=== PATIENT | female | born 1990 | race Caucasian/White ===

== ENCOUNTER 2016-07-29 17:04 | Emergency (ER) | payer OTHER ==
[2016-07-29 17:09] VITALS: BP 151/94
[2016-07-29] MEDS ORDERED: NS 0.9% 1000 ML* 1,000 ML IV ONE (18:07)
[2016-07-29 19:11] LABS: Hematocrit 45 % (35-47); Hemoglobin 14.7 g/dl (12.0-16.0); Mean Corpuscular HGB Conc 33 g/dl (31-36); Mean Corpuscular Hemoglobin 26 pg (27-31); Mean Corpuscular Volume 81 fL (80-97); Mean Platelet Volume 8 um3 (7.4-10.4); Red Blood Count 5.55 10^6/ul (4.0-5.4); Red Cell Distribution Width 14 % (10.5-15); White Blood Count 8.6 10^3/ul (3.5-10.8)
[2016-07-29 19:39] LABS: Albumin 4.2 g/dL (3.2-5.2); BUN/Creatinine Ratio 18.8 (8-20); C Reactive Protein 41.66 mg/L (< 5.00); Calcium 9.3 mg/dL (8.6-10.3); EGFR African American 145.4 (>60); EGFR Non-African American 113.1 (>60); Globulin 3.1 g/dL (2-4); Total Bilirubin 1.7 mg/dL (0.2-1.0); Total Protein 7.3 g/dL (6.4-8.9)
[2016-07-29] MEDS ORDERED: Iohexol 300* (CONTRAST) 10 ML SDV IV ONE (19:41)
--- NOTE | 2016-07-29 20:09 | RAD ---
CLINICAL HISTORY: Abdominal pain COMPARISON: March 09, 2015 TECHNIQUE: Multiple contiguous axial CT scans were obtained of the abdomen and pelvis after the administration of intravenous contrast. Coronal and sagittal multiplanar reformations are submitted for review. Oral contrast was administered. Delayed images were obtained through the abdomen FINDINGS: LUNG BASES: The lung bases are clear. LIVER: The liver is diffusely low in attenuation compared to the spleen. There are no focal hepatic parenchymal masses. The liver is enlarged measuring 20 cm in long axis. BILE DUCTS: There is no intrahepatic or extrahepatic biliary dilatation. GALLBLADDER: The gallbladder is normal, without pericholecystic inflammatory change. PANCREAS: The pancreas is normal, without mass or ductal dilatation. SPLEEN: Normal in size and appearance. UPPER GI TRACT: Evaluation of the gastrointestinal tract is limited by incomplete gastric distention. The upper GI tract is unremarkable. SMALL BOWEL AND MESENTERY: The small bowel is normal in contour, course, and caliber. There is no obstruction or dilatation. COLON: The colon is normal in contour, course, caliber. There is no pericolonic inflammatory change. There is a tubular, vermiform, hollow viscus that is blind ending, and originates from the cecum, consistent with a normal appendix. There is no periappendiceal inflammatory change. This is best seen on coronal image 56 ADRENALS: Normal bilaterally. KIDNEYS: The kidneys are normal in shape, size, contour, and axis. There is no hydronephrosis or nephrolithiasis. BLADDER: The bladder is smooth in contour. PELVIC ORGANS: Again noted is a low lying IUD, stable from the previous examination. AORTA: The aorta is normal. IVC: Unremarkable LYMPH NODES: There is no lymphadenopathy by size criteria. ABDOMINAL WALL: There is no evidence for abdominal wall hernia. BONES AND SOFT TISSUES: There are mild diffuse degenerative changes. OTHER: None IMPRESSION: HEPATOMEGALY WITH FATTY INFILTRATION OF THE LIVER.
[2016-07-29 20:40] LABS: Urine Bacteria Absent (Absent); Urine Bilirubin Negative (Negative); Urine Glucose Negative (Negative); Urine Nitrite Negative (Negative)
[2016-07-29] MEDS ORDERED: Ketorolac INJ* 30 MG/ML 1 ML VIAL IV PUSH ONE (21:15)
[2016-07-29] MEDS ORDERED: Ondansetron ODT TAB* 4 MG PO ONE (21:19)
--- NOTE | 2016-07-29 21:20 | ED ---
Ricardo Jara Billy, scribed for Gui Ellison MD on 07/29/16 at 1806 . Complex/Multi-Sys Presentation - HPI Summary HPI Summary: Patient is a 26 year-old female coming to [facility] presenting with left-lateral abdominal pain since last night at 1800. She describes sharp pains worse with deep breaths. She also states that her abdomen feels "gassy." Last night, patient had fever as well as N/V/D. The fever has since improved significantly. - History Of Current Complaint Chief Complaint: EDAbdPain Time Seen by Provider: 07/29/16 18:00 Hx Obtained From: Patient Onset/Duration: Gradual Onset, Lasting Hours, Still Present Timing: Constant Severity Currently: Moderate Severity Initially: Moderate Location: Pain At: - left lateral abdomen Aggravating Factor(s): deep breaths Alleviating Factor(s): none Associated Signs And Symptoms: Positive: Nausea, Vomiting, Diarrhea, Fever - Allergies/Home Medications Allergies/Adverse Reactions: Allergies Allergy/AdvReac Type Severity Reaction Status Date / Time Amoxicillin [From Augmentin] Allergy Severe Vomiting Verified 07/29/16 17:10 Clavulanic Acid Allergy Severe Vomiting Verified 07/29/16 17:10 [From Augmentin] PMH/Surg Hx/FS Hx/Imm Hx Endocrine/Hematology History: Denies: Hx Diabetes, Hx Systemic Lupus Erythematosus, Hx Thyroid Disease Cardiovascular History: Denies: Hx Congestive Heart Failure, Hx Hypertension Respiratory History: Denies: Hx Asthma, Hx Chronic Obstructive Pulmonary Disease (COPD) GI History: Denies: Hx Ulcer History: Denies: Hx Dialysis, Hx Renal Disease Musculoskeletal History: Denies: Hx Rheumatoid Arthritis Psychiatric History: Reports: Hx Depression - Cancer History Hx Chemotherapy: No Infectious Disease History: No Infectious Disease History: Denies: Hx Clostridium Difficile, Hx Hepatitis, Hx Human Immunodeficiency Virus (HIV), Hx of Known/Suspected MRSA, Hx Shingles, Hx Tuberculosis, Hx Known/ Suspected VRE, Hx Known/Suspected VRSA, History Other Infectious Disease, Traveled Outside the [place] in Last 30 Days - Family History Known Family History: Positive: Cardiac Disease, Diabetes, Other - EtOH abuse - Social History Alcohol Use: None Substance Use Type: Reports: None Smoking Status (MU): Never Smoked Tobacco Review of Systems Positive: Fever Positive: Abdominal Pain, Vomiting, Diarrhea, Nausea All Other Systems Reviewed And Are Negative: Yes Physical Exam - Summary Physical Exam Summary: VITAL SIGNS: Reviewed. GENERAL: Patient is an obese female who is lying comfortable in the stretcher. Patient is not in any acute respiratory distress. HEAD AND FACE: Normocephalic and atraumatic. EYES: PERRLA, EOMI x 2, No injected conjunctiva. EARS: Hearing grossly intact. Ear canals and tympanic membranes are WNL. MOUTH: Oropharynx within normal limits. NECK: Supple, trachea is midline, no adenopathy, no JVD. CHEST: Symmetric, no tenderness at palpation LUNGS: Clear to auscultation bilaterally. No wheezing or crackles. CVS: RRR,, S1 and S2 present, no murmurs or gallops appreciated. ABDOMEN: Soft, positive LUQ and left flank tenderness. No signs of distention. Positive bowel sounds. No rebound no guarding, and no masses palpated. No abdominal bruit or pulsations. EXTREMITIES: FROM in all major joints, no edema, no cyanosis or clubbing. NEURO: Alert and oriented x 3. No acute neurological deficits. Speech is normal. SKIN: Dry and warm Triage Information Reviewed: Yes Vital Signs On Initial Exam: Initial Vitals Temp Pulse Resp BP Pulse Ox 98.2 F 109 18 151/94 98 07/29/16 17:05 07/29/16 17:05 07/29/16 17:05 07/29/16 17:05 07/29/16 17:05 Vital Signs Reviewed: Yes Diagnostics - Vital Signs Vital Signs Temp Pulse Resp BP Pulse Ox 07/29/16 17:05 98.2 F 109 18 151/94 98 - Laboratory Result Diagrams: 07/29/16 18:52 07/29/16 18:52 Lab Statement: Any lab studies that have been ordered have been reviewed, and results considered in the medical decision making process. - CT abd/pel CT Interpretation Completed By: Radiologist - HEPATOMEGALY WITH FATTY INFILTRATION OF THE LIVER. - EKG 1710 EKG Interpretation: NSR 84 bpm, no ST elevation Re-Evaluation - Re-Evaluation First Eval Re-Evaluation Time: 21:17 Change: Improved Complex Multi-Symp Course/Dx Assessment/Plan: Patient is a 26 year-old female coming to [facility] presenting with left-lateral abdominal pain since last night at 1800. She describes sharp pains worse with deep breaths. She also states that her abdomen feels "gassy." Last night, patient had fever as well as N/V/D. The fever has since improved significantly. Bloodwork WNL. CRP is 41.6. UA is contaminated, therefore we will send urine cultures to be followed up by PCP. CT abd/pel shows hepatomegaly with fatty infiltration of the liver and no other abnormality. In the ED course, patient was given IV fluids and Toradol and her symptoms resolved. At this point the patient reprots that she is feeling much better without pain or dizziness. I believe that her symptoms are secondary to dehydration since the patient had multiple episodes of N/V/D. The pt was instructed to return to the ED with any increased pain, incresaed N/V, inability to tolerate PO, fevers, chills, or any other sx. She is A&Ox3, hemodynamically stable. - Diagnoses Differential Diagnoses/HQI/PQRI: Urinary Tract Infection - Kidney stones, pancreatitis, Provider Diagnoses: Nausea vomiting and diarrhea Discharge - Discharge Plan Condition: Stable Disposition: HOME Patient Education Materials: Acute Nausea and Vomiting (ED), Acute Diarrhea (ED ) Referrals: Ruth Smith MD [Primary Care Provider] - The documentation as recorded by the Ricardo blakely Billy accurately reflects the service I personally performed and the decisions made by me, Gui Ellison MD.
== END 2016-07-29 22:35 | disposition home or self-care (01) ==
LOC: ED 17:04
DX: R11.2 Nausea with vomiting, unspecified (principal); R19.7 Diarrhea, unspecified; R50.9 Fever, unspecified
CPT/HCPCS: 36415; 74177; 80053; 81003; 81015; 82150; 83605; 83690; 84702; 85025; 86140; 87040; 87086; 93005; 99282; Q9967

== ENCOUNTER → 2016-11-25 13:24 | Emergency (ER) | payer OTHER ==
[~2016-11-25 13:24] MED LIST: Ketorolac INJ* 60 MG/2 ML VIAL IM ONE
--- NOTE | 2016-11-25 15:49 | ED ---
Upper Extremity Pain - HPI Summary HPI Summary: Patient presents with left shoulder pain for 5 days without known injury. She says she has pain with abduction and forward flexion. She has taken ibuprofen and tylenol without relief. She denies N/T, swelling, warmth or redness. She has not prior injury. - History of Current Complaint Chief Complaint: EDExtremityUpper Stated Complaint: LT SHOULDER PAIN Time Seen by Provider: 11/25/16 14:59 Hx Obtained From: Patient Hx Last Menstrual Period: MERCEDES Mechanism Of Injury: Unknown Onset/Duration: Started Days Ago - 5, Atraumatic, Still Present Timing: Constant Severity Initially: Moderate Severity Currently: Moderate Pain Location: Shoulder Character: Sharp, Aching Aggravating Factor(s): Movement Alleviating Factor(s): Nothing Associated Signs & Symptoms: Positive: Negative Related History: Dominant Hand Right - Allergies/Home Medications Allergies/Adverse Reactions: Allergies Allergy/AdvReac Type Severity Reaction Status Date / Time Amoxicillin [From Augmentin] Allergy Severe Vomiting Verified 07/29/16 17:10 Clavulanic Acid Allergy Severe Vomiting Verified 07/29/16 17:10 [From Augmentin] PMH/Surg Hx/FS Hx/Imm Hx Endocrine/Hematology History: Denies: Hx Diabetes, Hx Systemic Lupus Erythematosus, Hx Thyroid Disease Cardiovascular History: Denies: Hx Congestive Heart Failure, Hx Hypertension Respiratory History: Denies: Hx Asthma, Hx Chronic Obstructive Pulmonary Disease (COPD) GI History: Denies: Hx Ulcer History: Denies: Hx Dialysis, Hx Renal Disease Musculoskeletal History: Denies: Hx Rheumatoid Arthritis Psychiatric History: Reports: Hx Depression - Cancer History Hx Chemotherapy: No Infectious Disease History: No Infectious Disease History: Denies: Hx Clostridium Difficile, Hx Hepatitis, Hx Human Immunodeficiency Virus (HIV), Hx of Known/Suspected MRSA, Hx Shingles, Hx Tuberculosis, Hx Known/ Suspected VRE, Hx Known/Suspected VRSA, History Other Infectious Disease, Traveled Outside the [place] in Last 30 Days - Family History Known Family History: Positive: Cardiac Disease, Diabetes, Other - EtOH abuse - Social History Occupation: Employed Part-time Lives: With Family Alcohol Use: None Substance Use Type: Reports: None Smoking Status (MU): Never Smoked Tobacco Review of Systems Negative: Fever, Chills Positive: Myalgia, Decreased ROM. Negative: Edema Negative: Paresthesia, Numbness All Other Systems Reviewed And Are Negative: Yes Physical Exam Triage Information Reviewed: Yes Vital Signs On Initial Exam: Initial Vitals Temp Pulse Resp BP Pulse Ox 98.8 F 76 20 153/74 100 11/25/16 13:41 11/25/16 13:41 11/25/16 13:41 11/25/16 13:41 11/25/16 13:41 Vital Signs Reviewed: Yes Appearance: Positive: Well-Appearing, Pain Distress, Obese Skin: Positive: Warm, Skin Color Reflects Adequate Perfusion, Dry, Soft Head/Face: Positive: Normal Head/Face Inspection Eyes: Positive: EOMI, LESLI, Conjunctiva Clear ENT: Positive: Hearing grossly normal Neck: Positive: Supple, Nontender, No Lymphadenopathy Respiratory/Lung Sounds: Positive: Breath Sounds Present Cardiovascular: Positive: RRR Musculoskeletal: Positive: Limited @ - FF to 70; abduction to 50 with pain, Pain @ - TTP left scapular spine, AC joint, and bicipital groove. Negative: Edema Left Neurological: Positive: Sensory/Motor Intact, Alert, Oriented to Person Place, Time, NV Bundle Intact Distally, Normal Gait Psychiatric: Positive: Affect/Mood Appropriate AVPU Assessment: Alert Diagnostics - Vital Signs Vital Signs Temp Pulse Resp BP Pulse Ox 11/25/16 15:07 98.7 F 75 18 134/75 100 11/25/16 13:44 98.0 F 81 20 153/74 100 11/25/16 13:41 98.8 F 76 20 153/74 100 - Laboratory Lab Statement: Any lab studies that have been ordered have been reviewed, and results considered in the medical decision making process. - Radiology No standard instances Xray Interpretation: No Acute Changes Radiology Interpretation Completed By: Radiologist Course/Dx - Diagnoses Differential Diagnosis/HQI/PQRI: Positive: Arthritis, Bursitis, Contusion, Fracture (Closed), Hematoma, Strain, Sprain Provider Diagnoses: Left shoulder pain Discharge - Discharge Plan Condition: Stable Disposition: HOME Patient Education Materials: Shoulder Pain (ED) Referrals: Ruth Smith MD [Primary Care Provider] - Additional Instructions: Please begin using ibuprofen 600mg three times daily with meals tomorrow evening for the next 3-5 days. Wear the sling as needed and rest your shoulder. Follow-up with Dr. Smith if your symptoms do not begin to improve in the next 5 -10 days.
--- NOTE | 2016-11-25 16:28 | RAD ---
INDICATION: Left shoulder pain. TECHNIQUE: 4 views of the left shoulder were obtained. FINDINGS: The bones are in normal alignment. No fracture is seen. No abnormal calcifications are seen. Joint spaces appear maintained. IMPRESSION: NEGATIVE EXAM.
[2016-11-25 16:56] VITALS: BP 124/64
== END | disposition home or self-care (01) ==
LOC: ED 13:24
DX: M25.512 Pain in left shoulder (principal)
CPT/HCPCS: 96372; 99282; J1885

== ENCOUNTER 2017-04-10 12:48 | Emergency (ER) | payer OTHER ==
[2017-04-10 17:44] LABS: Hematocrit 41 % (35-47); Hemoglobin 13.7 g/dl (12.0-16.0); Mean Corpuscular HGB Conc 34 g/dl (31-36); Mean Corpuscular Hemoglobin 26 pg (27-31); Mean Corpuscular Volume 78 fL (80-97); Mean Platelet Volume 7 um3 (7.4-10.4); Red Blood Count 5.22 10^6/ul (4.0-5.4); Red Cell Distribution Width 14 % (10.5-15); White Blood Count 10.9 10^3/ul (3.5-10.8)
[2017-04-10] MEDS ORDERED: Ondansetron INJ* 2 MG/ML VIAL IV ONE (18:01)
[2017-04-10] MEDS ORDERED: Ketorolac INJ* 30 MG/ML 1 ML VIAL IV ONE (18:01)
[2017-04-10 18:03] LABS: ALT 29 U/L (7-52); AST 22 U/L (13-39); Albumin 4.3 g/dL (3.2-5.2); Alkaline Phosphatase 49 U/L (34-104); Anion Gap 6 mmol/L (2-11); Blood Urea Nitrogen 13 mg/dL (6-24); C Reactive Protein 5.45 mg/L (< 5.00); CO2 Carbon Dioxide 30 mmol/L (22-32); Calcium 9.1 mg/dL (8.6-10.3); Chloride 102 mmol/L (101-111); EGFR African American 141.7 (>60); EGFR Non-African American 110.2 (>60); Globulin 3.2 g/dL (2-4); Glucose 89 mg/dL (70-100); Lipase 33 U/L (11.0-82.0); Potassium 3.8 mmol/L (3.5-5.0); Sodium 138 mmol/L (133-145); Total Protein 7.5 g/dL (6.4-8.9)
--- NOTE | 2017-04-10 19:18 | RAD ---
INDICATION: Right upper quadrant pain COMPARISON: Gallbladder ultrasound March 03, 2015 TECHNIQUE: Longitudinal and transverse scans of the right upper quadrant were obtained. Doppler interrogation of the hepatic and portal venous system was performed. There is mild limitations due to patient size. FINDINGS: Liver: The liver is mildly enlarged and is echogenic compatible with mild hepatic steatosis. There are no focal masses. The liver measures 17.9 cm in cephalocaudal dimension. Vessels: There is normal hepatic and portal venous flow. Bile ducts: There is no evidence of intrahepatic or extrahepatic ductal dilatation. The common duct measures 0.3 cm. Gallbladder: The sonographic appearance of the gallbladder is normal. There is no evidence of cholelithiasis, thickening of the gallbladder wall, or pericholecystic fluid. The patient was mildly tender over the gallbladder upon scanning Pancreas: The visualized pancreas appears normal Right kidney: The right kidney is normal in size and echogenicity. There are no masses or calculi. There is no evidence of hydronephrosis. The right kidney measures 11.8 x 5.0 x 4.9 cm. The patient was tender over the kidney when scanning. IVC and aorta: The aorta and superior vena cava appear normal. Fluid: There is no ascites. Other: None. IMPRESSION: MILD HEPATOMEGALY WITH HEPATIC STEATOSIS. NO DEFINITIVE EVIDENCE OF CHOLELITHIASIS.
[2017-04-10 19:52] LABS: Urine Bacteria Absent (Absent); Urine Bilirubin Negative (Negative); Urine Glucose Negative (Negative); Urine Nitrite Negative (Negative)
[2017-04-10] MEDS ORDERED: HYDROcodone/ACETAMIN 5-325 MG* 1 TAB PO ONE (19:59)
[2017-04-10 20:14] VITALS: BP 129/62
--- NOTE | 2017-04-10 21:47 | ED ---
Jt Jara Alfonso, scribed for Carson Bauer MD on 04/10/17 at 1800 . Abdominal Pain/Female - HPI Summary HPI Summary: This patient is a 27 year old F presenting to [facility] with a chief complaint of gradually worsening right sided abdominal pain since waking up at 0700 today. The pain radiates to her groin and lower right back. She had similar symptoms two years ago when she had a gallbladder attack. The patient rates the pain 7/ 10 in severity. Symptoms aggravated by nothing. Symptoms alleviated by nothing. Patient reports nausea, vomiting (once), and loss of appetite. Patient denies urinary symptoms. She has not had a BM today. - History of Current Complaint Chief Complaint: EDAbdPain Stated Complaint: ABD PAIN Time Seen by Provider: 04/10/17 17:55 Hx Obtained From: Patient Hx Last Menstrual Period: MERCEDES Onset/Duration: Gradual Onset, Lasting Hours, Worse Since Timing: Constant Severity Currently: Moderate Pain Intensity: 7 Pain Scale Used: 0-10 Numeric Location: Other - Right sided Radiates: Yes Radiates to: Back - right low, Other - groin Aggravating Factor(s): Nothing Alleviating Factor(s): Nothing Associated Signs and Symptoms: Positive: Other: - nausea, vomiting (once), and loss of appetite. Patient denies urinary symptoms Allergies/Adverse Reactions: Allergies Allergy/AdvReac Type Severity Reaction Status Date / Time Amoxicillin [From Augmentin] Allergy Severe Vomiting Verified 04/10/17 12:51 Clavulanic Acid Allergy Severe Vomiting Verified 04/10/17 12:51 [From Augmentin] PMH/Surg Hx/FS Hx/Imm Hx Endocrine/Hematology History: Denies: Hx Diabetes, Hx Systemic Lupus Erythematosus, Hx Thyroid Disease Cardiovascular History: Denies: Hx Congestive Heart Failure, Hx Hypertension, Hx Pacemaker/ICD Respiratory History: Denies: Hx Asthma, Hx Chronic Obstructive Pulmonary Disease (COPD) GI History: Denies: Hx Ulcer History: Denies: Hx Dialysis, Hx Renal Disease Musculoskeletal History: Denies: Hx Rheumatoid Arthritis, Hx Osteoporosis Sensory History: Denies: Hx Hearing Aid Psychiatric History: Reports: Hx Depression Denies: Hx Panic Disorder - Cancer History Hx Chemotherapy: No Infectious Disease History: No Infectious Disease History: Denies: Hx Clostridium Difficile, Hx Hepatitis, Hx Human Immunodeficiency Virus (HIV), Hx of Known/Suspected MRSA, Hx Shingles, Hx Tuberculosis, Hx Known/ Suspected VRE, Hx Known/Suspected VRSA, History Other Infectious Disease, Traveled Outside the [place] in Last 30 Days - Family History Known Family History: Positive: Cardiac Disease, Diabetes, Other - EtOH abuse - Social History Alcohol Use: None Substance Use Type: Reports: None Smoking Status (MU): Never Smoked Tobacco Review of Systems Negative: Fever Positive: Abdominal Pain, Vomiting, Nausea, Other - Loss of appetite Positive: no symptoms reported All Other Systems Reviewed And Are Negative: Yes Physical Exam Triage Information Reviewed: Yes Vital Signs On Initial Exam: Initial Vitals Temp Pulse Resp BP Pulse Ox 97.0 F 92 16 172/107 96 04/10/17 12:49 04/10/17 12:49 04/10/17 12:49 04/10/17 12:49 04/10/17 12:49 Vital Signs Reviewed: Yes Appearance: Positive: Well-Appearing, No Pain Distress, Obese Skin: Positive: Warm, Skin Color Reflects Adequate Perfusion, Dry Head/Face: Positive: Normal Head/Face Inspection Eyes: Positive: Normal ENT: Positive: Normal ENT inspection Neck: Positive: Supple, Nontender Respiratory/Lung Sounds: Positive: Clear to Auscultation, Breath Sounds Present Cardiovascular: Positive: RRR Abdomen Description: Positive: Soft, Other: - Epigastric, RUQ, and RLQ tenderness. Worse in the RUQ. Bowel Sounds: Positive: Present Musculoskeletal: Positive: Normal Neurological: Positive: Normal, Sensory/Motor Intact, Alert, Oriented to Person Place, Time, CN Intact II-III Psychiatric: Positive: Normal, Affect/Mood Appropriate Diagnostics - Vital Signs Vital Signs Temp Pulse Resp BP Pulse Ox 04/10/17 15:44 98.2 F 85 20 160/98 96 04/10/17 15:08 98.9 F 75 16 148/81 99 04/10/17 12:49 97.0 F 92 16 172/107 96 - Laboratory Lab Results: Lab Results 04/10/17 Range/Units 17:22 WBC 10.9 H (3.5-10.8) 10^3/ul RBC 5.22 (4.0-5.4) 10^6/ul Hgb 13.7 (12.0-16.0) g/dl Hct 41 (35-47) % MCV 78 L (80-97) fL MCH 26 L (27-31) pg MCHC 34 (31-36) g/dl RDW 14 (10.5-15) % Plt Count 350 (150-450) 10^3/ul MPV 7 L (7.4-10.4) um3 Neut % (Auto) 70.3 (38-83) % Lymph % (Auto) 21.3 L (25-47) % [place] % (Auto) 6.7 (1-9) % Eos % (Auto) 1.0 (0-6) % Baso % (Auto) 0.7 (0-2) % Absolute Neuts (auto) 7.6 (1.5-7.7) 10^3/ul Absolute Lymphs (auto) 2.3 (1.0-4.8) 10^3/ul Absolute Monos (auto) 0.7 (0-0.8) 10^3/ul Absolute Eos (auto) 0.1 (0-0.6) 10^3/ul Absolute Basos (auto) 0.1 (0-0.2) 10^3/ul Absolute Nucleated RBC 0 10^3/ul Nucleated RBC % 0 Result Diagrams: 04/10/17 17:22 04/10/17 17:22 Lab Statement: Any lab studies that have been ordered have been reviewed, and results considered in the medical decision making process. - Additional Comments Diagnostic Additional Comments: US gallbladder reveals MILD HEPATOMEGALY WITH HEPATIC STEATOSIS. NO DEFINITIVE EVIDENCE OF CHOLELITHIASIS. ED physician has reviewed this radiology report and agrees. Abdominal Pain Fem Course/Dx - Course Course Of Treatment: Ms. Espinal presented with right flank and RUQ pain that started this AM. Her WBCs were marginally elevated and her T. bili also. U/S was negative. This may be a functional GB problem. Her urine is equivocal and likely contaminated. I will treat her symptomatically and expectantly. - Diagnoses Provider Diagnoses: Abdominal pain Discharge - Discharge Plan Condition: Stable Disposition: HOME Patient Education Materials: Acute Abdominal Pain (ED) Referrals: Ruth Smith MD [Primary Care Provider] - 2 Days Additional Instructions: RETURN TO THE EMERGENCY DEPARTMENT FOR CHANGING OR WORSENING SYMPTOMS. The documentation as recorded by the Jt blakely Alfonso accurately reflects the service I personally performed and the decisions made by me, Carson Bauer MD.
== END 2017-04-10 20:13 | disposition home or self-care (01) ==
LOC: ED 12:48
DX: R10.9 Unspecified abdominal pain (principal); R11.2 Nausea with vomiting, unspecified; R63.0 Anorexia
CPT/HCPCS: 36415; 76705; 80053; 81003; 81015; 83605; 83690; 84702; 85025; 86140; 87086; 96374; 96375; 99284; J1885; J2405

== ENCOUNTER 2017-11-16 20:30 | Emergency (ER) | payer OTHER ==
[2017-11-16] MEDS ORDERED: diPHENhydraMINE PO* 25 MG PO ONE (20:41)
[2017-11-16] MEDS ORDERED: Dexamethasone IV* 4 MG/ML 1 ML (4 MG) IM ONE (20:41)
[2017-11-16 20:45] VITALS: BP 129/88
--- NOTE | 2017-11-16 21:00 | UC ---
Allergic Reaction HPI - HPI Summary HPI Summary: 27 year old female with history of obesity here with rash to her mowing her lawn. She reports she noticed rash to her arm while showering and she felt like her throat was closing with difficulty swallowing. Denies any n/v/d. As per mother and patient, they do not use pesticide on their lawn since they have dogs. She had similar reaction last week just with cutaneous manifestation that resolved on its own. - History of Current Complaint Chief Complaint: UCAllergicReaction Stated Complaint: RASH Time Seen by Provider: 11/16/17 20:36 Hx Last Menstrual Period: 1 year IUD Onset/Duration: Sudden Onset Pain Intensity: 0 Character: Hives Aggravating Factor(s): Nothing Alleviating Factor(s): Nothing Associated Signs And Symptoms: Negative: Negative - Allergies/Home Medications Allergies/Adverse Reactions: Allergies Allergy/AdvReac Type Severity Reaction Status Date / Time amoxicillin Allergy vomitting Verified 11/16/17 20:39 hives clavulanic acid Allergy vomitting Verified 11/16/17 20:39 [From Augmentin] hives PMH/Surg Hx/FS Hx/Imm Hx Previously Healthy: No Endocrine History: Other - obesity Other Endocrine History: Obesity - Surgical History Surgical History: None Surgery Procedure, Year, and Place: gall bladder - Family History Known Family History: Positive: Cardiac Disease, Diabetes, Other - EtOH abuse - Social History Alcohol Use: None Substance Use Type: None Smoking Status (MU): Never Smoked Tobacco Review of Systems Constitutional: Negative Skin: Rash Eyes: Negative ENT: Negative Respiratory: Shortness Of Breath Cardiovascular: Negative Gastrointestinal: Negative Genitourinary: Negative Motor: Negative Neurovascular: Negative Musculoskeletal: Negative Neurological: Negative Psychological: Negative Is Patient Immunocompromised?: No All Other Systems Reviewed And Are Negative: Yes Physical Exam Triage Information Reviewed: Yes Appearance: Well-Appearing, No Pain Distress Vital Signs: Initial Vital Signs Temp 36.7 C 11/16/17 20:37 Pulse 104 11/16/17 20:37 Resp 20 11/16/17 20:37 BP 129/88 11/16/17 20:37 Pulse Ox 99 11/16/17 20:37 ENT: Positive: Normal ENT inspection, Uvula midline. Negative: Pharyngeal erythema, Nasal congestion, Nasal drainage, TMs normal, Trismus, Muffled voice Neck exam: Normal Respiratory Exam: Normal Cardiovascular Exam: Normal Abdominal Exam: Normal Skin: Positive: significant lesion(s) - Bilateral arm erythroderma with blister on right arm Not warm to touch Allergic Reaction Course/Dx - Differential Dx/Diagnosis Differential Diagnosis/HQI/PQRI: Anaphylaxis, Local Allergic Reaction, Urticaria Provider Diagnoses: Contact dermatitis vs. poison john. benadryl and steroids given Discharge - Sign-Out/Discharge Documenting (check all that apply): Discharge/Admit/Transfer - Discharge Plan Condition: Good Disposition: HOME Prescriptions: Clobetasol 0.05% OINT* 1 applic TOPICAL BID #1 tube Patient Education Materials: Dermatitis (ED) Referrals: Ruth Smith MD [Primary Care Provider] - - Billing Disposition and Condition Condition: GOOD Disposition: HOME
[2017-11-16] MEDS ORDERED: Hydrocortisone 1% CREAM* 30 GM TUBE TOPICAL ONE (21:31)
== END 2017-11-16 21:30 | disposition home or self-care (01) ==
LOC: UCEAST 20:30
DX: L25.9 Unspecified contact dermatitis, unspecified cause (principal); Z88.3 Allergy status to other anti-infective agents; E66.9 Obesity, unspecified; Z81.1 Family history of alcohol abuse and dependence; Z83.3 Family history of diabetes mellitus; Z82.49 Family history of ischemic heart disease and other diseases of the circulatory system
CPT/HCPCS: 96372; 99212; A9270-GY; G0463; J1100

== ENCOUNTER 2018-04-23 11:00 | Emergency (ER) | payer OTHER ==
[2018-04-23 11:11] VITALS: BP 138/90
--- NOTE | 2018-04-23 11:36 | UC ---
Throat Pain/Nasal Jasbir HPI - HPI Summary HPI Summary: 28 yo female presents with sore throat for the last 4 days with body aches and laryngitis over the last day. She has been taking tylenol and ibuprofen with mild relief. Has felt feverish, but has not taken his temperature. Denies SOB, chest pain, abdominal pain, n/v. - History of Current Complaint Chief Complaint: UCRespiratory Stated Complaint: SORE THROAT FEVER WEAK Time Seen by Provider: 04/23/18 11:36 Hx Obtained From: Patient Hx Last Menstrual Period: depo Onset/Duration: Gradual Onset Severity: Moderate Pain Intensity: 6 Pain Scale Used: 0-10 Numeric - Allergies/Home Medications Allergies/Adverse Reactions: Allergies Allergy/AdvReac Type Severity Reaction Status Date / Time amoxicillin Allergy vomitting Verified 04/23/18 11:11 hives clavulanic acid Allergy vomitting Verified 04/23/18 11:11 [From Augmentin] hives Home Medications: Home Medications Fluoxetine HCl [Prozac] 40 mg PO DAILY 04/23/18 [History Confirmed 04/23/18] [place] Carbonate [[place] Carbonate 300 mg cap] 300 mg PO DAILY 04/23/18 [ History Confirmed 04/23/18] Quetiapine Fumarate [Quetiapine 100 mg] 100 mg PO DAILY 04/23/18 [History Confirmed 04/23/18] Seroquel 100 MG * 100 mg PO DAILY 04/23/18 [History Confirmed 04/23/18] PMH/Surg Hx/FS Hx/Imm Hx Psychological History: Anxiety, Depression, Bipolar Disorder - Surgical History Surgical History: Yes Surgery Procedure, Year, and Place: gall bladder - Family History Known Family History: Positive: Cardiac Disease, Diabetes, Other - EtOH abuse - Social History Occupation: Employed Full-time Lives: With Family Alcohol Use: None Substance Use Type: None Smoking Status (MU): Never Smoked Tobacco Review of Systems Constitutional: Fatigue, Other - Body aches Skin: Negative Eyes: Negative ENT: Sore Throat Respiratory: Cough Cardiovascular: Negative Gastrointestinal: Negative Neurovascular: Negative Neurological: Negative Psychological: Negative All Other Systems Reviewed And Are Negative: Yes Physical Exam - Summary Physical Exam Summary: GENERAL: NAD. Hoarse voice SKIN: No rashes, sores, lesions, or open wounds. HEENT: Head: AT/NC Eyes: Conjunctiva clear without inflammation or discharge. Ears: Hearing grossly normal. TMs intact, no bulging, erythema, or edema. Nose: Nasal mucosa pink and moist. NTTP maxillary and frontal sinus. Throat: Posterior oropharynx mild erythema and 2+ tonsillar enlargement. No exudates. Uvula midline. No hoarse voice or muffled voice. NECK: Supple. Nontender. No lymphadenopathy. CHEST: CTAB. No r/r/w. No accessory muscle use. Breathing comfortably and in no distress. CV: RRR. Without m/r/g. Pulses intact. Cap refill <2seconds NEURO: Alert. PSYCH: Age appropriate behavior. Triage Information Reviewed: Yes Vital Signs: Initial Vital Signs Temp 97.8 F 04/23/18 11:08 Pulse 100 04/23/18 11:08 Resp 19 04/23/18 11:08 BP 138/90 04/23/18 11:08 Pulse Ox 98 04/23/18 11:08 Laboratory Tests 04/23/18 11:59 Group A Strep Rapid Negative Vital Signs Reviewed: Yes Throat Pain/Nasal Course/Dx - Course Course Of Treatment: POC strep negative. Pharyngitis - Differential Dx/Diagnosis Provider Diagnoses: Pharyngitis Discharge - Sign-Out/Discharge Documenting (check all that apply): Patient Departure All imaging exams completed and their final reports reviewed: No Studies - Discharge Plan Condition: Stable Disposition: HOME Prescriptions: Azithromycin TAB* [Zithromax TAB (Z-LUIS) 250 mg #6 tabs] 2 tab PO .TODAY, THEN 1 DAILY #1 luis Patient Education Materials: Pharyngitis (ED), Laryngitis (ED) Referrals: Ruth Smith MD [Primary Care Provider] - Additional Instructions: If you develop a fever, shortness of breath, chest pain, new or worsening symptoms - please call your PCP or go to the ED. Your blood pressure was high at todays visit. Please see your primary provider within 4 weeks for recheck and re-evaluation. - Billing Disposition and Condition Condition: STABLE Disposition: Home
== END 2018-04-23 12:22 | disposition home or self-care (01) ==
LOC: UCEAST 11:00
DX: J02.9 Acute pharyngitis, unspecified (principal); F41.9 Anxiety disorder, unspecified; F31.9 Bipolar disorder, unspecified; Z88.1 Allergy status to other antibiotic agents; Z88.0 Allergy status to penicillin
CPT/HCPCS: 87651; 99212; G0463

== ENCOUNTER 2018-07-18 20:00 | Emergency (ER) | payer OTHER ==
[2018-07-18 20:16] VITALS: BP 163/92
[2018-07-18] MEDS ORDERED: Ketorolac INJ* 30 MG/ML 1 ML VIAL IM ONE (20:36)
--- NOTE | 2018-07-18 20:39 | UC ---
Minor Trauma HPI - HPI Summary HPI Summary: 28-year-old female presents with complaints of right shoulder pain after slipping on the ice and falling onto her right side earlier today. Pain is primarily located over the mid right clavicle and she states it radiates into her shoulder and into the right side of her neck. Pain worsens with any type of movement. She has taken ibuprofen 1 dose with little relief in pain. Denies numbness or tingling. - History of Current Complaint Chief Complaint: UCUpperExtremity Stated Complaint: SHOULDER INJURY Time Seen by Provider: 07/18/18 20:24 Hx Obtained From: Patient Hx Last Menstrual Period: iud Pain Intensity: 8 - Allergies/Home Medications Allergies/Adverse Reactions: Allergies Allergy/AdvReac Type Severity Reaction Status Date / Time amoxicillin Allergy vomitting Verified 07/18/18 20:07 hives clavulanic acid Allergy vomitting Verified 07/18/18 20:07 [From Augmentin] hives Home Medications: Home Medications ALPRAZolam [Xanax] 1 mg PO TID 07/18/18 [History Confirmed 07/18/18] Bupropion XL* [Wellbutrin XL *] 150 mg PO DAILY 07/18/18 [History Confirmed ] Ibuprofen 400 mg PO Q8HR PRN 07/18/18 [History Confirmed 07/18/18] Levonorgestrel (Iud) [Mirena IUD] 20 mcg IU DAILY 07/18/18 [History Confirmed ] PMH/Surg Hx/FS Hx/Imm Hx Endocrine History: Other - polycystic ovary syndrome Psychological History: Anxiety, Depression - Surgical History Surgical History: Yes Surgery Procedure, Year, and Place: gall bladder - Family History Known Family History: Positive: Cardiac Disease, Diabetes, Other - EtOH abuse - Social History Alcohol Use: None Substance Use Type: None Smoking Status (MU): Never Smoked Tobacco Review of Systems All Other Systems Reviewed And Are Negative: Yes Constitutional: Positive: Negative Skin: Negative: Bruising Respiratory: Positive: Negative Cardiovascular: Positive: Negative Gastrointestinal: Positive: Negative Genitourinary: Positive: Negative Motor: Negative: Weakness Neurovascular: Negative: Decreased Sensation Musculoskeletal: Positive: Other: - See HPI Neurological: Positive: Negative Physical Exam - Summary Physical Exam Summary: GENERAL APPEARANCE: Well developed, well nourished, alert and cooperative, and appears to be in no acute distress. HEAD: Atraumatic. normocephalic. NECK: Neck supple, non-tender. CARDIAC: Normal S1 and S2. No S3, S4 or murmurs. Rhythm is regular. There is no peripheral edema, cyanosis or pallor. Extremities are warm and well perfused. Capillary refill is less than 2 seconds. Peripheral pulses intact. LUNGS: Clear to auscultation without rales, rhonchi, wheezing or diminished breath sounds. ABDOMEN: Positive bowel sounds. Soft, nondistended, nontender. No guarding or rebound. No masses or hepatosplenomegally. MUSKULOSKELETAL: Tenderness over the mid right clavicle and over the AC joint. No gross deformity, ecchymosis, erythema, or lesions. Abduction mildly diminished due to pain . Circulation and sensation intact distally. BACK: Examination of the spine reveals normal gait and posture, no spinal deformity or tenderness, decreased range of motion or muscular spasm. NEUROLOGICAL: Strength and sensation symmetric and intact throughout. SKIN: Skin normal color, texture and turgor with no lesions or eruptions. Triage Information Reviewed: Yes Vital Signs: Initial Vital Signs Temp 97.8 F 07/18/18 20:06 Pulse 93 07/18/18 20:06 Resp 18 07/18/18 20:06 BP 163/92 07/18/18 20:06 Pulse Ox 96 07/18/18 20:06 Vital Signs Reviewed: Yes Diagnostics - Radiology No standard instances Radiology Interpretation Completed By: ED Physician - No acute fracture or dislocation Minor Trauma Course/Dx - Course Course Of Treatment: 28-year-old female presents with complaints of right shoulder pain after slipping on the ice and falling onto her right side earlier today. Pain is primarily located over the mid right clavicle and she states it radiates into her shoulder and into the right side of her neck. Pain worsens with any type of movement. She has taken ibuprofen 1 dose with little relief in pain. Denies numbness or tingling. Afebrile. Vital signs stable. Exam reveals tenderness over the mid right clavicle and over the AC joint. No gross deformity, ecchymosis, erythema, or lesions. Abduction mildly diminished due to pain . Circulation and sensation intact distally. X-ray showed no acute fracture or dislocation. Patient was given a dose of ketorolac for pain and she was given a prescription for naproxen. She was put into arm sling for support and comfort. Recommending symptomatic treatment for a right shoulder sprain. She is to follow-up with orthopedic surgery if no improvement in her symptoms. Anticipatory guidance and warning symptoms were provided to the patient. Verbalizes understanding and agrees with plan of care - Differential Dx/Diagnosis Differential Diagnosis/HQI/PQRI: Contusion(s), Fracture, Dislocation, Sprain Provider Diagnosis: Sprain of right shoulder Discharge - Sign-Out/Discharge Documenting (check all that apply): Patient Departure All imaging exams completed and their final reports reviewed: No Studies - Discharge Plan Condition: Stable Disposition: HOME Prescriptions: Naproxen [Naproxen 500 mg tab] 500 mg PO Q12HR #30 tablet Patient Education Materials: How to Use a Sling (ED), Shoulder Sprain (ED) Referrals: Ruth Smith MD [Primary Care Provider] - Demetrio Phillips MD [Medical Doctor] - 5 Days (If no improvement in symptoms. Call for appointment.) Additional Instructions: The x-rays performed in the clinic [facility] showed no evidence of fracture. The x -rays will be reviewed by the radiologist tomorrow and we will contact you if they see anything that changes our plan of care. I suspect that you have a right shoulder sprain. Rest the shoulder as much as possible. Use the sling provided to you for support for the next 2 days. Be sure to remove your arm from the sling every couple of hours to do some gentle range of motion exercises of the shoulder. After 2 days do not use the sling to avoid having the shoulder freeze up. Apply ice to the affected areas for 15-20 minutes at least 4 times a day to help with pain and swelling. You were given a dose of ketoralac in the clinic for pain. You will need to wait at least 8 hours after receiving this before you take anything else for pain. Take naproxen 500 mg every 12 hours with food for the next 5-7 days then may take as needed. Follow up with orthopedic surgery in 5 days if no improvement of symptoms. Call for an appointment. Seek immediate medical attention in the emergency room if you have severe pain that is not managed with your pain medication, you have weakness, numbness, or tingling in the arm, hand, or fingers, or have any worsening of symptoms. - Billing Disposition and Condition Condition: STABLE Disposition: Home
[2018-07-18] MEDS ORDERED: Naproxen TAB* 250 MG PO ONE (21:24)
== END 2018-07-18 21:45 | disposition home or self-care (01) ==
LOC: UCEAST 20:00
DX: S43.401A Unspecified sprain of right shoulder joint, initial encounter (principal); W00.0XXA Fall on same level due to ice and snow, initial encounter; Y92.9 Unspecified place or not applicable; F41.9 Anxiety disorder, unspecified; F32.9 Major depressive disorder, single episode, unspecified; Z88.1 Allergy status to other antibiotic agents; Z88.0 Allergy status to penicillin
CPT/HCPCS: 96372; 99213; A9270-GY; G0463; J1885

== ENCOUNTER 2019-06-16 18:10 | Emergency (ER) | payer OTHER ==
[2019-06-16 18:28] VITALS: BP 156/72
[2019-06-16] MEDS ORDERED: hydrOXYzine HCL TAB* 25 MG PO ONE (18:53)
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
== END 2019-06-16 19:07 | disposition home or self-care (01) ==
LOC: UCEAST 18:10
DX: F41.1 Generalized anxiety disorder (principal); F43.0 Acute stress reaction; I10 Essential (primary) hypertension; Z88.1 Allergy status to other antibiotic agents; Z88.0 Allergy status to penicillin
CPT/HCPCS: 99212; A9270-GY; G0463

== ENCOUNTER 2019-06-20 15:41 | Emergency (ER) | payer SELFPAY ==
[2019-06-20] MEDS ORDERED: Ondansetron ODT TAB* 4 MG PO ONE (17:59)
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
[2019-06-20 18:46] VITALS: BP 124/97
== END 2019-06-20 18:48 | disposition home or self-care (01) ==
LOC: ED 15:41
DX: R11.0 Nausea (principal); R07.0 Pain in throat; F43.9 Reaction to severe stress, unspecified; R51 Headache; V49.9XXA Car occupant (driver) (passenger) injured in unspecified traffic accident, initial encounter; Y92.9 Unspecified place or not applicable; F32.9 Major depressive disorder, single episode, unspecified; F41.9 Anxiety disorder, unspecified; Z88.1 Allergy status to other antibiotic agents; Z88.0 Allergy status to penicillin
CPT/HCPCS: 71046; 99281; A9270-GY

== ENCOUNTER 2020-08-07 11:29 | Inpatient (IN) ==
[2020-08-07 12:35] LABS: ABS Lymphocytes 1.6 10^3/ul (1.0-4.8); ABS Monocytes 0.6 10^3/ul (0-0.8); ABS Neutrophils 7.1 10^3/ul (1.5-7.7); Eosinophil % 0.4 %; Hematocrit 44 % (35-47); Hemoglobin 14.8 g/dL (12.0-16.0); Lymphocyte % 17.6 %; Mean Corpuscular HGB Conc 34 g/dL (31-36); Mean Corpuscular Hemoglobin 28 pg (27-31); Mean Corpuscular Volume 83 fL (80-97); Mean Platelet Volume 7.3 fL (7.4-10.4); Platelet Count 301 10^3/uL (150-450); Red Blood Count 5.27 10^6 /uL (3.70-4.87); Red Cell Distribution Width 14 % (10-15); White Blood Count 9.4 10^3/uL (3.5-10.8)
[2020-08-07] MEDS ORDERED: HYDROcodone/ACETAMIN 5/325 mg TAB PO ONE (13:14)
[2020-08-07 13:25] LABS: Albumin 4.3 g/dL (3.2-5.2); Calcium 9.3 mg/dL (8.6-10.3); Potassium 4.6 mmol/L (3.5-5.0); Total Bilirubin 1.3 mg/dL (0.2-1.0)
[2020-08-07 13:31] LABS: Albumin/Globulin Ratio 1.7 (1-3); BUN/Creatinine Ratio 18.2 (8-20); C Reactive Protein 4.66 mg/L (<8.01); EGFR African American 128.1 (>60); EGFR Non-African American 105.9 (>60); Globulin 2.6 g/dL (2-4); Total Protein 6.9 g/dL (6.4-8.9)
[2020-08-07 14:15] LABS: Erythrocyte Sed Rate 4 mm/Hr (0-19)
[2020-08-07] MEDS ORDERED: LEVONORGESTREL IU SCH (17:00)
[2020-08-07] MEDS: Ondansetron 4 mg VIAL 2 MG/ML 2 ml VIAL IV PRN (19:37)
[2020-08-08] MEDS: Ondansetron 4 mg VIAL 2 MG/ML 2 ml VIAL IV PRN ×3 (03:55→18:06)
[2020-08-08 06:17] LABS: ABS Lymphocytes 0.8 10^3/ul (1.0-4.8); ABS Monocytes 0.3 10^3/ul (0-0.8); ABS Neutrophils 8.9 10^3/ul (1.5-7.7); Hematocrit 44 % (35-47); Lymphocyte % 7.8 %; Mean Corpuscular HGB Conc 34 g/dL (31-36); Mean Corpuscular Hemoglobin 28 pg (27-31); Mean Corpuscular Volume 82 fL (80-97); Mean Platelet Volume 7.5 fL (7.4-10.4); Platelet Count 312 10^3/uL (150-450); Red Blood Count 5.33 10^6 /uL (3.70-4.87); Red Cell Distribution Width 14 % (10-15); White Blood Count 10.1 10^3/uL (3.5-10.8)
[2020-08-08 06:33] LABS: Anion Gap 9 mmol/L (2-11); BUN/Creatinine Ratio 27.3 (8-20); Blood Urea Nitrogen 18 mg/dL (6-24); CO2 Carbon Dioxide 24 mmol/L (22-32); Calcium 9.2 mg/dL (8.6-10.3); Chloride 103 mmol/L (101-111); EGFR African American 128.1 (>60); EGFR Non-African American 105.9 (>60); Glucose 134 mg/dL (70-100); Potassium 4.2 mmol/L (3.5-5.0); Sodium 136 mmol/L (135-145)
[2020-08-08] MEDS ORDERED: Polyethylene Glycol 3350 17 GM PACKET PO PRN (09:17)
[2020-08-08] MEDS ORDERED: Magnesium Hydroxide LIQ 30 ML UDC PO PRN (09:17)
[2020-08-08] MEDS ORDERED: Senna TAB 8.6 mg TAB PO PRN (09:17)
[2020-08-08] MEDS: Orphenadrine Citrate INJ 30 mg/ml 2 ml VIAL (60 mg) IV SCH ×3 (12:04→23:51)
[2020-08-08] MEDS: Lidocaine PATCH 5% PATCH TRANSDERM SCH (12:04)
[2020-08-08 14:36] LABS: HCG Pregnancy < 0.60 mIU/mL
[2020-08-08] MEDS: Enoxaparin 40 MG/0.4 ML SYR SUBCUT SCH (15:34)
[2020-08-08] MEDS: Lidocaine Patch REMOVE PATCH PATCH OFF SCH (21:33)
[2020-08-09] MEDS: Ondansetron 4 mg VIAL 2 MG/ML 2 ml VIAL IV PRN ×3 (03:59→22:04)
[2020-08-09] MEDS: Lidocaine PATCH 5% PATCH TRANSDERM SCH (07:48)
[2020-08-09] MEDS: Orphenadrine Citrate INJ 30 mg/ml 2 ml VIAL (60 mg) IV SCH ×2 (11:56→19:57)
[2020-08-09] MEDS: Enoxaparin 40 MG/0.4 ML SYR SUBCUT SCH (15:02)
[2020-08-09] MEDS ORDERED: HYDROcodone/ACETAMIN 5/325 mg TAB PO PRN ×2 (17:31→17:32)
[2020-08-09] MEDS ORDERED: Magnesium Hydroxide LIQ 30 ML UDC PO ONE (17:36)
[2020-08-09] MEDS: Senna TAB 8.6 mg TAB PO SCH (19:55)
[2020-08-09] MEDS: Morphine 2 MG/ML SYRINGE IV PRN (22:03)
[2020-08-09] MEDS: Lidocaine Patch REMOVE PATCH PATCH OFF SCH (22:18)
[2020-08-10] MEDS: Orphenadrine Citrate INJ 30 mg/ml 2 ml VIAL (60 mg) IV SCH ×2 (08:40→22:02)
[2020-08-10] MEDS: Ondansetron 4 mg VIAL 2 MG/ML 2 ml VIAL IV PRN ×2 (08:40→21:11)
[2020-08-10] MEDS: Morphine 2 MG/ML SYRINGE IV PRN ×2 (08:40→21:11)
[2020-08-10] MEDS: Lidocaine PATCH 5% PATCH TRANSDERM SCH (08:42)
[2020-08-10] MEDS ORDERED: Lidocaine 1% VIAL 10 MG/ML VIAL ONE (14:04)
[2020-08-10] MEDS: Polyethylene Glycol 3350 17 GM PACKET PO SCH (15:03)
[2020-08-10] MEDS: Enoxaparin 40 MG/0.4 ML SYR SUBCUT SCH (15:03)
[2020-08-10] MEDS: Morphine ORAL.SOLN 10 mg 2 mg/ml UDC 5 ml (10 mg) PO PRN ×2 (15:03→21:18)
[2020-08-10 17:18] LABS: Urine Appearance Cloudy; Urine Bilirubin Negative (Negative); Urine Blood 1+ (Negative); Urine Color Yellow; Urine Glucose Negative (Negative); Urine Ketones Negative (Negative); Urine Nitrite Negative (Negative); Urine Protein Negative (Negative); Urine Specific Gravity 1.028 (1.010-1.030); Urine Urobilinogen Negative (Negative)
[2020-08-10 17:20] LABS: Urine Bacteria 1+ (Absent); Urine Red Blood Cell 2+(6-10/hpf) (Absent); Urine Squamous Epithelial Cell Present (Absent); Urine White Blood Cell 2+(11-20/hpf) (Absent)
[2020-08-10] MEDS: Lidocaine Patch REMOVE PATCH PATCH OFF SCH (22:14)
[2020-08-10] MEDS: Senna TAB 8.6 mg TAB PO SCH (22:14)
[2020-08-11] MEDS: Morphine ORAL.SOLN 10 mg 2 mg/ml UDC 5 ml (10 mg) PO PRN ×2 (07:22→13:48)
[2020-08-11] MEDS ORDERED: Sodium Phosphate ADULT ENEMA 133 ML BTL PR ONE (08:33)
[2020-08-11] MEDS: Polyethylene Glycol 3350 17 GM PACKET PO SCH ×2 (09:24→23:34)
[2020-08-11] MEDS: Orphenadrine Citrate INJ 30 mg/ml 2 ml VIAL (60 mg) IV SCH ×2 (09:27→22:17)
[2020-08-11] MEDS: Lidocaine PATCH 5% PATCH TRANSDERM SCH (09:28)
[2020-08-11] MEDS: Enoxaparin 40 MG/0.4 ML SYR SUBCUT SCH (13:50)
[2020-08-11] MEDS: Ondansetron 4 mg VIAL 2 MG/ML 2 ml VIAL IV PRN (13:58)
[2020-08-11] MEDS: Senna TAB 8.6 mg TAB PO SCH (23:35)
[2020-08-12] MEDS: Lidocaine Patch REMOVE PATCH PATCH OFF SCH (04:54)
[2020-08-12] MEDS: Lidocaine PATCH 5% PATCH TRANSDERM SCH (08:42)
[2020-08-12] MEDS: Polyethylene Glycol 3350 17 GM PACKET PO SCH (08:43)
[2020-08-12] MEDS: Orphenadrine Citrate INJ 30 mg/ml 2 ml VIAL (60 mg) IV SCH ×2 (09:51→22:17)
[2020-08-12] MEDS: Enoxaparin 40 MG/0.4 ML SYR SUBCUT SCH (14:50)
[2020-08-12] MEDS ORDERED: Morphine 10 MG/ML VIAL (1 ml) IV ONE (18:19)
[2020-08-12] MEDS ORDERED: Morphine 2 MG/ML SYRINGE IV ONE (19:00)
[2020-08-12] MEDS: Dexamethasone IV 4 MG/ML VIAL 1 ml VIAL IV SLOW PU SCH (22:17)
[2020-08-13] MEDS: Senna TAB 8.6 mg TAB PO SCH (00:44)
[2020-08-13] MEDS: Polyethylene Glycol 3350 17 GM PACKET PO SCH ×2 (00:44→09:30)
[2020-08-13 01:42] LABS: Urine Appearance Cloudy; Urine Bilirubin Negative (Negative); Urine Blood Negative (Negative); Urine Color Amber; Urine Glucose Negative (Negative); Urine Ketones Negative (Negative); Urine Nitrite Negative (Negative); Urine Protein 1+(30 mg/dL) (Negative); Urine Urobilinogen Negative (Negative)
[2020-08-13 01:51] LABS: Urine Bacteria Absent (Absent); Urine Red Blood Cell Absent (Absent); Urine Squamous Epithelial Cell Present (Absent); Urine White Blood Cell Trace(0-5/hpf) (Absent)
[2020-08-13] MEDS: Lidocaine Patch REMOVE PATCH PATCH OFF SCH (02:50)
[2020-08-13] MEDS: Dexamethasone IV 4 MG/ML VIAL 1 ml VIAL IV SLOW PU SCH ×2 (05:48→13:33)
[2020-08-13] MEDS: Orphenadrine Citrate INJ 30 mg/ml 2 ml VIAL (60 mg) IV SCH (09:29)
[2020-08-13] MEDS: Lidocaine PATCH 5% PATCH TRANSDERM SCH (09:29)
[2020-08-13 11:18] VITALS: BP 135/82
[2020-08-13] MEDS: Enoxaparin 40 MG/0.4 ML SYR SUBCUT SCH (13:33)
[2020-08-13] MEDS ORDERED: Morphine ORAL.SOLN 10 mg 2 mg/ml UDC 5 ml (10 mg) PO ONE (16:05)
[2020-08-13] MEDS: Ondansetron 4 mg VIAL 2 MG/ML 2 ml VIAL IV PRN (17:15)
== END 2020-08-13 17:45 | disposition home health service (06) | DRG 347 ==
LOC: ED 11:29 → MED 11:29
PROVIDERS: ADMIT Internal Medicine; ATTEND Pediatrics